=== PATIENT | female | born 1935 | race Caucasian/White ===

== ENCOUNTER 2016-08-18 12:25 | Inpatient (IN) ==
[2016-08-18 12:49] LABS: MANUAL DIFF NEEDED? NO
[2016-08-18 13:05] LABS: BASO% 0.2 % (0.0-0.8); EOS# 0.23 X1000 (0.0-0.7); EOS% 1.3 % (0.0-10.0); HEMATOCRIT 37.5 % (37.0-47.0); HEMOGLOBIN 12.4 g/dL (12.0-16.0); IMM GRAN% 0.6 % (0.0-0.5); LYMPH# 3.43 X1000 (1.2-3.4); MCH 29.9 PG (27-31); MCHC 33.1 g/dL (33-37); MCV 90.4 FL (81-99); NEUT% 68.9 % (42.2-75.2); PLT 215 X1000 (130-400); RBC 4.15 XMIL (4.2-5.4)
--- NOTE | 2016-08-18 13:13 | EKG Report ---
Test Performed on : 08/18/2016 12:48:28 PM Test Reason : CHEST PAIN Blood Pressure : / mmHG Vent. Rate : 083 BPM Atrial Rate : 083 BPM P-R Int : 162 ms QRS Dur : 068 ms QT Int : 348 ms P-R-T Axes : 054 006 016 degrees QTc Int : 408 ms Normal sinus rhythm. Normal ECG When compared with ECG of 13-AUG-2016 09:44, No significant change was found Unconfirmed Result
[2016-08-18 13:16] LABS: INR 0.95 (0.86-1.15)
[2016-08-18 13:17] LABS: PTT PL 32.2 Seconds (22.6-43.9)
[2016-08-18 13:22] LABS: ALBUMIN 3.7 g/dL (3.5-5.0); CALCIUM 9.1 mg/dL (8.8-10.2); MAGNESIUM 2.1 mg/dL (1.5-2.7); POTASSIUM 3.1 mmol/L (3.5-5.1); TOTAL BILIRUBIN 0.5 mg/dL (0.20-1.00); TOTAL PROTEIN 7.1 g/dL (6.3-8.3)
--- NOTE | 2016-08-18 13:35 | Diag Imaging Result Doc PS360 ---
EXAM: CHEST-2 VIEWS HISTORY: CP COMMENT: The inspiration is somewhat suboptimal. There is a hiatal hernia. There is a calcified granuloma in the right base. Compared to the previous examination of 05/21/2013 there has been no significant change in the appearance of the chest. IMPRESSION: Stable chest. Electronically signed by Boogie Núñez 08/18/2016 1:32 PM
[2016-08-18 13:46] LABS: CK INDEX 1.9 (0.0-2.5); CK-MB 3.69 ng/mL (0.0-5.0)
--- NOTE | 2016-08-18 14:04 | Diag Imaging Result Doc PS360 ---
EXAM: HEAD W/O CONTRAST HISTORY: falls, slurred speech COMMENT: There are no previous studies available for comparison. There is generalized cerebral atrophy. There are patchy ill-defined areas of lucency in the white matter of both hemispheres. This is particularly true on the left side on image 21. No evidence of bleed mass effect or abnormal extra-axial fluid collection is present. There are calcifications in both internal carotid arteries. The visualized paranasal sinuses are clear. The calvarium appears to be intact. 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 No evidence of acute intracranial disease. Electronically signed by Boogie Núñez 08/18/2016 2:02 PM
[2016-08-18 14:40] LABS: BE 7.8 mmoll (-3.0-3.0); BLOOD TYPE ARTERIAL; DRAW SITE R RADIAL; METHB 1.2 % (0.0-1.5); O2(CT) 16.2 mL/dL (15.0-23.0); PCO2(98.6) 46 mmHg (35-45); PO2(98.6) 68 mmHg (60-100); SAMPLE BLOOD; THB 12.3 g/dL (11.5-17.4); pH(98.6) 7.46 (7.35-7.45)
[2016-08-18 14:42] LABS: ALLEN TEST YES; MODALITY CANNULA
[2016-08-18 14:54] LABS: URINE CULTURE PL NEEDED? NO
[2016-08-18 15:05] LABS: UR AMPHETAMINES QUAL NONE DETECTED (NONE DETECT); UR BARBITUATES QUAL NONE DETECTED (NONE DETECT)
[2016-08-18 15:06] LABS: UR BENZODIAZEPIN QUAL PRESUMPTIVE POSITIVE (NONE DETECT); UR CANNABINOIDS QUAL NONE DETECTED (NONE DETECT); UR COCAINE QUAL NONE DETECTED (NONE DETECT); UR MDMA QUAL NONE DETECTED (NONE DETECT); UR METHADONE QUAL NONE DETECTED (NONE DETECT); UR METHAMPHETAMINE QUAL NONE DETECTED (NONE DETECT); UR OPIATES QUAL NONE DETECTED (NONE DETECT); UR OXYCODONE QUAL NONE DETECTED (NONE DETECT); UR PCP QUAL NONE DETECTED (NONE DETECT); UR TCA QUAL NONE DETECTED (NONE DETECT)
[2016-08-18 15:09] LABS: BILIRUBIN URINE NEGATIVE (NEGATIVE); BLOOD URINE TRACE (NEGATIVE); CLARITY CLEAR (CLEAR); COLOR YELLOW; GLUCOSE URINE NEGATIVE (NEGATIVE); LEUKOCYTES URINE 2+ (NEGATIVE); NITRITE URINE NEGATIVE (NEGATIVE); PROTEIN URINE TRACE mg/dL (NEGATIVE); URINE SOURCE CLEAN CATCH; UROBILINOGEN URINE NORMAL
[2016-08-18 15:10] LABS: URINE EPITHELIAL CELLS <10 /HPF (<10); URINE WBC <10 /HPF (<10)
--- NOTE | 2016-08-18 17:12 | PROVIDER DOCUMENTATION ---
This chart was entered by Christopher Montanez Scribe, acting as scribe for Tyson Esquivel MD. HPI-General Adult - General Chief Complaint: Fall Stated Complaint: fall Time Seen by Provider: 08/18/16 12:42 Source: patient, family Allergies/Adverse Reactions: Patient Allergies Allergy/AdvReac Type Severity Reaction Status Date / Time acetaminophen [From Lortab] Allergy Severe Unknown Verified 11/10/14 19:26 cyclobenzaprine HCl * Allergy Severe Unknown Verified 11/10/14 19:26 [From Flexeril] diphenhydramine HCl * Allergy Severe Unknown Verified 11/10/14 19:26 [From Benadryl] hydrocodone bitartrate * Allergy Severe Unknown Verified 11/10/14 19:26 [From Lortab] prednisone AdvReac DIZZINESS Verified 08/18/16 12:30 Home Medications: Home Medication List Medication Instructions Recorded Confirmed Last Taken Type Amlodipine [Norvasc] 10 mg PO DAILY 05/21/13 08/18/16 11/10/14 History Furosemide [Lasix] 80 mg PO DAILY 05/21/13 08/18/16 11/10/14 History Gabapentin [Neurontin] 800 mg PO 4XDAY 05/21/13 08/18/16 11/10/14 History Nebivolol [Bystolic] 5 mg PO DAILY 05/21/13 08/18/16 11/10/14 History Alprazolam [Xanax] 0.5 mg PO TID 11/10/14 08/13/16 11/10/14 History Clonidine [Catapres] 0.1 mg PO PRN PRN 08/13/16 08/18/16 Unknown History Levothyroxine [Synthroid] 100 microgm PO DAILY 08/13/16 08/18/16 Unknown History Meclizine [Antivert] 25 mg PO PRN PRN 08/13/16 08/18/16 Unknown History Tramadol [Ultram] 50 mg PO Q6H PRN PRN 08/13/16 08/18/16 Unknown History Prednisone 10 mg PO DAILY 08/18/16 08/18/16 Unknown History - History of Present Illness -Gen Adult Nature of Presenting Problems: patient is a 80 y/o F that presents to the ER with falling multiple times past few weeks as well as slurred speech and dizziness. Son reports patient was placed on Prednisone which she is allergic to. her pcp put her on it for knee pain, in which she was suppose to have surgery on it next week but it was delayed due to elevated WBC. Location of Pain/Injury: reports: lower extremity (right knee) Pain Radiation: reports: no radiation Quality of Pain: reports: dull Severity: reports: mild, moderate Onset/Duration: reports: other (chronic) Timing: reports: still present, constant Context/Activities at Onset: reports: recent trauma history Modifying Factors: improves with: nothing Associated Symptoms: reports: dizziness, weakness, other (slurred speech). denies: nausea, rash Similar Symptoms Previously?: No Recently seen or treated by another doctor?: Yes Review of Systems - Adult - REVIEW OF SYSTEMS - ADULT Constitutional: denies: chills, fever Eyes: denies: decreased vision, blurred vision, double vision Ears, Nose, Mouth & Throat: denies: ear discharge, ear pain, sinus problem, throat pain, throat swelling Cardiovascular: denies: chest pain, palpitations, syncope Respiratory: denies: cough, shortness of breath, wheezing Gastrointestinal: denies: abdominal pain, diarrhea, nausea, vomiting Genitourinary: reports: no symptoms reported Musculoskeletal: reports: joint pain, muscle weakness. denies: back pain, neck pain Integumentary: reports: no symptoms reported Neurological: reports: dizziness/vertigo. denies: seizure, syncope Psychiatric: reports: no symptoms reported Endocrine: reports: no symptoms reported Hematologic/Lymphatic: reports: no symptoms reported Allergic/Immunologic: reports: no symptoms reported All Other Systems: Reviewed and Negative Past History - Adult - PAST MEDICAL HISTORY-ADULT Review of Records: reports: Old Records Reviewed, Nursing Assessment Review, Medications Reviewed Cardiovascular: reports: HTN, hyperlipidemia Neurological: reports: other (neuropathy) - PRIOR SURGERIES/PROCEDURES Surgical/Procedure History: reports: hysterectomy, other (cataract) - PRIOR HOSPITALIZATIONS Prior Hospitalizations: reports: none - IMMUNIZATION STATUS Childhood Immunizations: See Nurse Assessment Flu Vaccine: See Nurse Assessment - FAMILY HISTORY Family History: reviewed, not pertinent - SOCIAL HISTORY Smoking: non-smoker Living Situation: family Physical Exam-General - PHYSICAL EXAM-ADULT Initial Vital Signs Reviewed: Yes - CONSTITUTIONAL General Appearance: no apparent distress, slow to respond - EYES Eyes: PERRL/EOMI, pink conjunctivae - HEAD, EARS, NOSE, MOUTH & THROAT HENMT: normocephalic/atraumatic, moist mucous membranes, normal ENT inspection - NECK Neck: full range of motion, normal inspection - RESPIRATORY Respiratory: lungs clear, normal breath sounds, no respiratory distress, no accessory muscle use - CARDIOVASCULAR Cardiovascular: regular rate, rhythm, no edema, no murmur - GASTROINTESTINAL (ABDOMEN) Abdominal Exam: normal bowel sounds, non tender, soft, no organomegaly, no pulsatile mass - MUSCULOSKELETAL Extremity: no pedal edema, normal capillary refill, pelvis stable - SKIN Integumentary: normal color, warm/dry - NEUROLOGIC Neurologic: other (slurred speech). negative: aphasia, facial droop, focal weakness, motor weakness, sensory deficit - PSYCHIATRIC Psych/Mental Status: oriented x 3, other (slow to respond) Progress - PLAN OF CARE/RESULTS Progress/Plan/Lab Results: Vital Signs - 8 hr 08/18/16 12:27 Pulse Rate 80 Respiratory Rate 18 Blood Pressure 130/61 O2 Sat by Pulse Oximetry 94 L Laboratory Results - last 24 hr 08/18/16 12:30 WBC 18.04 H RBC 4.15 L Hgb 12.4 Hct 37.5 MCV 90.4 MCH 29.9 MCHC 33.1 RDW Std Deviation 14.1 Plt Count 215 MPV 11.0 H Immature Gran % (Auto) 0.6 H Neut % (Auto) 68.9 Lymph % (Auto) 19.0 L [place] % (Auto) 10.0 H Eos % (Auto) 1.3 Baso % (Auto) 0.2 Immature Gran # (Auto) 0.10 H Neut # (Auto) 12.44 H Lymph # (Auto) 3.43 H [place] # (Auto) 1.80 H Eos # (Auto) 0.23 Baso # (Auto) 0.04 Orders Category Date Time Status Cardiac Monitoring DIRECTED Care 08/18/16 12:33 Active Oxygen Therapy- ED Nursing DIRECTED Care 08/18/16 12:33 Active Saline Loc NOW Care 08/18/16 12:33 Active CHEST-2 VIEWS [RAD] Stat Exams 08/18/16 12:33 Ordered CBC WITH ELECTRONIC DIFF [HEME] Stat Lab 08/18/16 12:30 Completed CK PROFILE [SP CHEM] Stat Lab 08/18/16 12:30 Received COMPREHENSIVE METABOLIC PANEL [CHEM] Stat Lab 08/18/16 12:30 Received D-DIMER PL [COAG] Stat Lab 08/18/16 12:30 Received MAGNESIUM [CHEM] Stat Lab 08/18/16 12:30 Received PRO B-NATRIURETIC PEPTIDE Stat Lab 08/18/16 12:30 Received [address]IME WITH INR PL [COAG] Stat Lab 08/18/16 12:[address] [COAG] Stat Lab 08/18/16 12:30 Received TROPONIN T Stat Lab 08/18/16 12:30 Received EKG [EKG] Stat Ther 08/18/16 12:33 Ordered Result Diagrams: 08/18/16 12:30 08/18/16 12:30 - REASSESSMENT Reassessment #1 Time Reassessed: 15:45 (Son is concerned about the number of meds she takes. Speech is still sl slurred. WBC is down from 24 last week) Status: unchanged - EKG 1 Time of EKG reading by physician:: 12:49 EKG Read and Signed by:: Tyson Esquivel EKG Interpretation (*Must complete 3 of following elements*): Normal Rate: 83 Rhythm: NSR [place]: normal QRS: normal OR Interval: normal ST Wave: normal - XRAY 1 XRAY Study: Chest Impression: Abnormal XRAY Interpretation: hital hernia, calcified granuloma in R base - CT/MRI 1 CT Study: Head Impression: Abnormal CT Results: chronic ischemic microvas dz and cerebral atrophy - CONSULTS/PCP/HOSPITALIST Notification #1 *Consult/PCP/Hospitalist*: [place] Time Discussed: 16:01 Consult Disposition: Admit Departure - Departure Time of Disposition Decision: 16:02 DIAGNOSIS: Altered mental status Qualifiers: Altered mental status type: unspecified Qualified Code(s): R41.82 - Altered mental status, unspecified Falls Qualifiers: Encounter type: initial encounter Qualified Code(s): W19.XXXA - Unspecified fall, initial encounter Disposition: ADMITTED INPATIENT 09 Certified Medical Emergency: Emergent Condition: Stable Referrals and Follow-Ups: Shakir Rocha MD [Primary Care Provider] - - Critical Care Note This patient required my direct & personal management of CC.: No This chart was documented by the indicated scribe, (Christopher Montanez, Scribe) and accurately reflects the services I performed and decisions made by Alvin garcia Alex T., MD, as attested by the provider's signature.
[2016-08-18] MEDS ORDERED: ZOFRAN PO PRN (17:15)
[2016-08-18] MEDS ORDERED: NS 1,000 ML IV ONE (17:15)
[2016-08-18] MEDS ORDERED: TYLENOL PO PRN (17:15)
[2016-08-18] MEDS ORDERED: ULTRAM PO PRN (19:55)
[2016-08-18] MEDS: XANAX PO PRN (21:33)
[2016-08-19] MEDS: SYNTHROID PO SCH (06:06)
[2016-08-19 06:42] LABS: AGAP 9; ALBUMIN 3.2 g/dL (3.5-5.0); ALKALINE PHOSPHATASE 95 U/L (32-104); BUN 12 mg/dL (8-22); CALCIUM 8.4 mg/dL (8.8-10.2); CHLORIDE 101 mmol/L (98-107); COSMO 278; GOT 14 U/L (10-30); GPT 12 U/L (10-36); POTASSIUM 3.5 mmol/L (3.5-5.1); SODIUM 137 mmol/L (136-145); TCO2 27 mmol/L (25-35); TOTAL PROTEIN 6.1 g/dL (6.3-8.3)
[2016-08-19 06:57] LABS: HEMATOCRIT 33.9 % (37.0-47.0); HEMOGLOBIN 11.3 g/dL (12.0-16.0); MCH 30.2 PG (27-31); MCHC 33.3 g/dL (33-37); MCV 90.6 FL (81-99); MPV 10.9 FL (7.4-10.4); RBC 3.74 XMIL (4.2-5.4)
[2016-08-19] MEDS ORDERED: ZOFRAN IV PRN (07:34)
[2016-08-19] MEDS ORDERED: TYLENOL PO PRN (07:34)
--- NOTE | 2016-08-19 07:52 | PROGRESS NOTE ---
DATE: 08/19/2016 SUBJECTIVE: The patient notes that she is feeling a little bit better. She is still dizzy and lightheaded. Has not fallen but she has also not been out of bed. She is asking to restart her Neurontin because she notes that her feet feel like they are going to explode. PHYSICAL EXAMINATION: Vital Signs: Temperature 97, pulse 80, respiratory rate 18, BP 117/47, and saturation is 96% on 2 L. General: The patient is awake, alert, oriented. She is currently in no respiratory distress. Speech appears regular. Memory appears intact. Neck: Supple. CV: Regular rate. Chest: Clear. Abdomen: Soft. Extremities: Moves all extremities. Neurologic: No focal changes. DIAGNOSTIC DATA: WBCs 14. Potassium 3.5, creatinine 0.7, glucose 184. Alkaline phosphatase 91. ASSESSMENT: 1. Mild protein calorie malnutrition. 2. Probable urinary tract infection. 3. Frequent falls. 4. Hypokalemia. 5. Leukocytosis, improving. Uncertain if leukocytosis is secondary to her recent steroids or to her urinary tract infection. We will follow. 6. Elevated D-dimer. The patient has no signs nor symptoms of shortness of breath or chest pain. We will check an ultrasound of her lower extremities, although likely this is secondary to chronic vascular disease. 7. Frequent falls secondary to adult failure to thrive and right knee arthritis for which she is scheduled for surgery. PLAN: We will continue her on antibiotics. We will continue her blood pressure medications of losartan and Bystolic. We will saline lock. We will restart her Neurontin but at a lower dose as she has been falling and uncertain of the cause, whether it is just simple pain or if she is truly getting disoriented from medications. cc: Marin Galeana MD
[2016-08-19] MEDS: XANAX PO PRN ×3 (08:31→22:27)
[2016-08-19] MEDS: BYSTOLIC PO SCH (08:31)
[2016-08-19] MEDS: ROCEPHIN 1 GM/NS 1 GM/50 ML IVPB IV SCH (08:32)
[2016-08-19] MEDS: NEURONTIN PO SCH ×3 (08:32→17:08)
[2016-08-19] MEDS: LASIX PO SCH (08:32)
[2016-08-19] MEDS: COZAAR PO SCH (08:32)
[2016-08-19] MEDS: ASPIRIN EC PO SCH (08:33)
--- NOTE | 2016-08-19 10:19 | HISTORY AND PHYSICAL ---
CHIEF COMPLAINT: Fall. HISTORY OF PRESENT ILLNESS: This is an 80-year-old female who presented to the emergency room reporting multiple falls over the past few weeks. The son states that she has had slurred speech and dizziness over the last week or so, although she has chronic dizziness for which she takes meclizine. Slurred speech being new. She was started on steroids on August 04. by her PCP . Symptoms appeared after this medication was introduced. The son states that she does have a history of dizziness while taking prednisone. On arrival to the emergency room, she was noted to have slurred speech with no other neurologic deficits. This did resolve over time. A CT of the head revealed chronic ischemic microvascular disease and cerebral atrophy. No evidence of acute intracranial disease. White count was noted to be 18 with a D-dimer of 1.79. She is being admitted for further evaluation and treatment. PAST MEDICAL HISTORY: Prior CVA, hypertension, hypothyroid, chronic knee pain. SURGICAL HISTORY: Cataract removal, hysterectomy, and brow lift. SOCIAL HISTORY: Denies alcohol, tobacco, or illicit drug use. ALLERGIES: Tylenol, Flexeril, Benadryl, Lortab with unknown reactions, and prednisone which makes her dizzy. REVIEW OF SYSTEMS: A 14 point review of systems is discussed with the patient with pertinent positives stated in the HPI. She denied any chest pain, palpitations, cough, fever, chills, shortness of breath, PND, orthopnea, nausea, vomiting, diarrhea, constipation, black or bloody vomitus, black or bloody stools, hematuria, dysuria, frequency, urgency. DIAGNOSTICS: WBC is 18.04, with a hemoglobin of 12.4, hematocrit 37.5, and platelets of 215,000. D-dimer is 1.79. Sodium is 136, potassium 3.1, BUN 17, creatinine 1, with a glucose of 186. Urinalysis was essentially negative. Urine drug screen was positive for benzodiazepines. ASSESSMENT AND PLAN: 1. Frequent falls. 2. Hypokalemia. 3. Leukocytosis. It is uncertain if this is secondary to recent steroids or urinary tract infection but we will follow. 4. Elevated D-dimer. She has no symptoms of shortness of breath or chest pain. We will check a lower extremity Doppler. Further testing based on results. 5. Probable urinary tract infection. The patient was started on nitrofurantoin prior to admission by her primary care physician. Urine culture is pending. We will continue Rocephin in the meantime. 6. Frequent falls secondary to adult failure to thrive and right knee arthritis for which she was scheduled for surgery today. PLAN: We will continue her medications. We will restart her Neurontin at a lower dose as we are uncertain if her falls and her slurred speech were secondary to medication. She has recently been on steroids daily. The son states that she has difficulty taking prednisone, it making her dizzy and difficulty maintaining her balance. We will hold steroids. Further treatments pending hospital course. Dictated by YOSEF Cagle for Marin Galeana MD cc: YOSEF Cagle MD MTDD
--- NOTE | 2016-08-19 14:01 | Extremity Venous Study ---
EXAM: Venous U/S Bilateral Legs INDICATION: d dimer COMPARISON: None. FINDINGS: There are no discrete filling defects seen in the deep venous systems of both lower extremities on grayscale imaging. There is normal Doppler flow, compressibility, and augmentation involving the common femoral veins, superficial femoral veins, popliteal veins, posterior tibial veins, and peroneal veins bilaterally. The great saphenous veins appear to be patent bilaterally. There is an incidental right popliteal cyst measuring up to 3.8 cm. Surrounding soft tissues are essentially unremarkable, otherwise. IMPRESSION: 1.No evidence of deep venous thrombosis. 2.Incidental right popliteal cyst. Electronically signed by Sridhar Cerna 08/19/2016 1:58 PM
[2016-08-19] MEDS ORDERED: ZOFRAN ODT PO PRN (15:13)
[2016-08-20 06:44] LABS: HEMATOCRIT 33.2 % (37.0-47.0); HEMOGLOBIN 10.9 g/dL (12.0-16.0); MCH 29.7 PG (27-31); MCHC 32.8 g/dL (33-37); MCV 90.5 FL (81-99); RBC 3.67 XMIL (4.2-5.4)
[2016-08-20 06:50] LABS: AGAP 14; BUN 10 mg/dL (8-22); CALCIUM 8.3 mg/dL (8.8-10.2); CHLORIDE 102 mmol/L (98-107); COSMO 285; POTASSIUM 3.6 mmol/L (3.5-5.1); SODIUM 140 mmol/L (136-145); TCO2 25 mmol/L (25-35)
[2016-08-20] MEDS: SYNTHROID PO SCH (06:50)
--- NOTE | 2016-08-20 08:18 | PROGRESS NOTE ---
DATE: 08/20/2016 SUBJECTIVE: The patient notes that she is feeling better. She would like to start trying to get up some. She denies any headaches or blurred vision. Denies any dizziness while she is lying in the bed. PHYSICAL EXAMINATION: Vital Signs: Temperature 98, pulse 81, respiratory rate 20, BP 139/53, and saturating 96% on room air. General: Patient is awake, alert, oriented. She is currently in no respiratory distress. She states she is feeling better. HEENT: Normocephalic. Neck: Supple. CV: Regular rate. Chest: Clear. Abdomen: Soft, nontender. Extremities: Moves all extremities. Neurologic: No changes. DIAGNOSTIC DATA: CBC at 14 with a hemoglobin and hematocrit of 10 and 33. CMP normal. ASSESSMENT: 1. Urinary tract infection. Urine culture is still growing, has not resulted out yet. We will continue antibiotics. 2. Frequent falls. 3. Hypokalemia. 4. Leukocytosis, stable. PLAN: I certainly do not feel as though her recent falls and confusion were secondary to medications. It appears that it is much more likely to be secondary to her urinary tract infection. She has right knee issues and had previously been scheduled for replacement, although this needs to wait until her infection is improved. cc: Marin Galeana MD
[2016-08-20] MEDS: ASPIRIN EC PO SCH (08:52)
[2016-08-20] MEDS: XANAX PO PRN ×3 (08:52→20:33)
[2016-08-20] MEDS: COZAAR PO SCH (08:52)
[2016-08-20] MEDS: LASIX PO SCH (08:52)
[2016-08-20] MEDS: BYSTOLIC PO SCH (08:52)
[2016-08-20] MEDS: ROCEPHIN 1 GM/NS 1 GM/50 ML IVPB IV SCH (08:52)
[2016-08-20] MEDS: NEURONTIN PO SCH ×3 (08:52→17:05)
[2016-08-21] MEDS: SYNTHROID PO SCH (06:37)
[2016-08-21] MEDS: ROCEPHIN 1 GM/NS 1 GM/50 ML IVPB IV SCH (07:06)
[2016-08-21 08:18] VITALS: BP 133/53
--- NOTE | 2016-08-21 08:23 | PROGRESS NOTE ---
DATE: 08/21/2016 SUBJECTIVE: Patient notes that she is feeling better. States she is able to ambulate a little bit better. Denies any syncope. PHYSICAL EXAMINATION: Vital Signs: Temperature 98, pulse 79, respiratory rate 21, BP 128/55, saturating 92% to 95% on room air. General: Patient awake alert, oriented. She is in no distress. Speech is regular. Neck: Supple. CV: Regular rate. Chest: Clear. Abdomen: Soft. Extremities: Moves all extremities. LABS: Urinalysis growing E. coli. ASSESSMENT: 1. Escherichia coli, pansensitive. We will switch to Levaquin p.o. 2. Adult failure to thrive. 3. Chronic right lower extremity arthritis. 4. Leukocytosis resolved. 5. Hypokalemia, resolved. 6. Elevated D-dimer likely secondary to her pain in the right lower extremity and her knee arthritis. PLAN: Hopefully patient can be discharged home later on this afternoon. She is currently on her home medications and is doing well. If she can ambulate we will discharge her home to follow up outpatient with ortho. cc: Marin Galeana MD
[2016-08-21] MEDS: ASPIRIN EC PO SCH (08:58)
[2016-08-21] MEDS: COZAAR PO SCH (08:58)
[2016-08-21] MEDS: NEURONTIN PO SCH ×2 (08:58→12:36)
[2016-08-21] MEDS: LASIX PO SCH (08:59)
[2016-08-21] MEDS: BYSTOLIC PO SCH (08:59)
[2016-08-21] MEDS ORDERED: LEVAQUIN PO SCH (09:00)
[2016-08-21] MEDS: XANAX PO PRN (09:41)
--- NOTE | 2016-08-22 12:35 | DISCHARGE SUMMARY ---
ADMISSION DATE: 08/18/2016 DISCHARGE DATE: 08/21/2016 DIAGNOSES: 1. Frequent falls. 2. Escherichia coli urinary tract infection, pansensitive. 3. Leukocytosis, resolved. 4. Adult failure to thrive. 5. Chronic right lower extremity arthritis. 6. Hypokalemia, resolved. DIAGNOSTICS: On 08/18/2016 chest x-ray, hiatal hernia, a calcified granuloma in the right base with somewhat suboptimal inspiration. On 08/18/[address], chronic ischemic microvascular disease and cerebral atrophy. No evidence of acute disease. On 08/19/2016 extremity venous Doppler, bilateral, with no evidence of deep vein thrombosis. HOSPITAL COURSE: Ms. Nunez was admitted to the hospital after having frequent falls over the 3 weeks prior to admission. Over the 24 hours prior to coming in, she had more falls, and she developed slurred speech and dizziness. She does have a history of chronic dizziness, for which she takes meclizine. CT of the head revealed no acute processes. She was found have a white count of 18 and ultimately she had an Escherichia coli urinary tract infection, for which she received IV antibiotics and transitioned to Levaquin p.o. Her slurred speech has resolved. She is back to her normal. She does have chronic right lower extremity arthritis and, in fact, she was to have a right knee replacement on the day of admission, but this had been canceled due to an elevated white blood cell count that was felt to be secondary to steroid use. Physical Therapy did evaluate the patient. She ambulated actually 110 feet earlier this morning. She stated that the pain was her usual pain. She has had no syncopal episodes or dizziness since admission. DISCHARGE PHYSICAL EXAMINATION: Cardiovascular: Regular rate and rhythm. S1 and S2 are appreciated. Pulmonary: Breath sounds are clear, with no increased work of breathing noted. Gastrointestinal: Abdomen is soft, nontender, and nondistended, with bowel sounds in all 4 quadrants. Extremities: No clubbing, cyanosis, or edema. Calves are nontender. Pulses are palpable x4. Neurologic: She is alert and oriented x3, with cranial nerves 2-12 grossly intact. DISCHARGE MEDICATIONS: Xanax 0.5 p.o. t.i.d. p.r.n., enteric-coated aspirin 81 mg daily (which she is holding due to upcoming knee replacement), Lasix 80 mg daily, Neurontin 400 mg t.i.d., Levaquin 500 mg daily, Synthroid 100 mcg daily, Cozaar 100 mg daily, Bystolic 5 mg daily, Zofran ODT p.r.n., and Ultram 50 mg q.6 hours p.r.n. DISCHARGE ACTIVITY: As tolerated. FOLLOWUP: 1. She is to follow up her primary care physician in the next 1-[address] Dupont in Orthopedics as scheduled. 3. She will have home health and home PT. DISPOSITION: She is being discharged home in stable condition with family members. TIME SPENT: This is a greater than 30-minute discharge. Dictated by YOSEF Cagle for Marin Galeana MD cc: YOSEF Cagle MD
== END 2016-08-21 14:52 | disposition home or self-care (01) ==
LOC: P.ED 12:25 → P.MEDSURG 17:23
PROVIDERS: ATTEND Family Medicine

== ENCOUNTER 2016-10-21 06:44 | Inpatient (IN) ==
[2016-10-13 09:44] LABS: MANUAL DIFF NEEDED? NO; URINE MICRO REVIEW NEEDED? NO; URINE SOURCE CLEAN CATCH
[2016-10-13 09:54] LABS: BASO% 0.7 % (0.0-0.8); EOS# 0.51 X1000 (0.0-0.7); EOS% 3.9 % (0.0-10.0); HEMATOCRIT 43.4 % (37.0-47.0); HEMOGLOBIN 14.3 g/dL (12.0-16.0); IMM GRAN# 0.02 X1000 (0.0-0.04); IMM GRAN% 0.2 % (0.0-0.5); LYMPH# 4.13 X1000 (1.2-3.4); LYMPH% 31.9 % (20.5-51.1); MCH 27.3 PG (27-31); MCHC 32.9 g/dL (33-37); MCV 82.8 FL (81-99); MONO# 0.91 X1000 (0.11-0.59); MPV 11.2 FL (7.4-10.4); NEUT% 56.3 % (42.2-75.2); PLT 289 X1000 (130-400); RBC 5.24 XMIL (4.2-5.4)
[2016-10-13 10:02] LABS: BILIRUBIN URINE NEGATIVE (NEGATIVE); BLOOD URINE NEGATIVE (NEGATIVE); COLOR STRAW; GLUCOSE URINE NEGATIVE (NEGATIVE); LEUKOCYTES URINE NEGATIVE (NEGATIVE); NITRITE URINE NEGATIVE (NEGATIVE); PH URINE 7.5; PROTEIN URINE NEGATIVE (NEGATIVE); SP GRAVITY URINE 1.002; TURBIDITY URINE CLEAR (CLEAR); UROBILINOGEN URINE NORMAL (NORMAL)
[2016-10-13 10:05] LABS: INR 0.97; PROTIME 10.2 Seconds (9.2-11.7); PTT 28.1 Seconds (22.0-36.0)
[2016-10-13 10:07] LABS: UR EPITHELIAL CELLS <10 /HPF (<10); URINE BACTERIA NEGATIVE /HPF; URINE RBC <10 /HPF (<10); URINE WBC <10 /HPF (<10)
[2016-10-13 10:24] LABS: CALCIUM 10.3 mg/dL (8.8-10.2); POTASSIUM 4.1 mmol/L (3.5-5.1)
[2016-10-21] MEDS ORDERED: COLACE ONE (07:40)
[2016-10-21] MEDS ORDERED: PEPCID ONE (07:40)
[2016-10-21] MEDS ORDERED: REGLAN ONE (07:40)
[2016-10-21] MEDS ORDERED: LR 1,000 ML ONE (07:41)
[2016-10-21] MEDS ORDERED: CELEBREX ONE (07:41)
[2016-10-21] MEDS ORDERED: KEFZOL 1 GM/D5W 1 GM/50 ML IVPB ONE (07:41)
[2016-10-21] MEDS ORDERED: LYRICA ONE (07:41)
[2016-10-21] MEDS ORDERED: BYSTOLIC PO ONE (08:15)
[2016-10-21] MEDS ORDERED: DIPRIVAN 1% 500 MG/50 ML BOTTLE ONE (09:36)
[2016-10-21] MEDS ORDERED: FENTANYL ONE (09:39)
[2016-10-21] MEDS ORDERED: VERSED ONE (09:42)
[2016-10-21] MEDS ORDERED: DURAMORPH ONE (10:05)
[2016-10-21] MEDS ORDERED: TORADOL ONE (10:05)
[2016-10-21] MEDS ORDERED: SENSORCAINE 0.25%/EPI 1:200,000 ONE (10:06)
[2016-10-21] MEDS ORDERED: SODIUM CHLORIDE 0.9% ONE (10:06)
[2016-10-21] MEDS ORDERED: EXPAREL 1.3% ONE (10:06)
[2016-10-21] MEDS ORDERED: CYKLOKAPRON 1,000 MG/NS 1,000 MG/100 ML IVPB ONE ×2 (10:06→10:07)
[2016-10-21] MEDS ORDERED: NEOSPORIN G.U. IRRIGANT ONE (10:06)
[2016-10-21] MEDS ORDERED: VANCOMYCIN ONE (10:06)
[2016-10-21] MEDS ORDERED: OFIRMEV 1000 MG/ISOTONIC SOLN 1,000 MG/100 ML BOTTLE ONE (10:39)
[2016-10-21] MEDS ORDERED: ZOFRAN ONE (10:39)
[2016-10-21] MEDS ORDERED: DECADRON ONE (10:39)
[2016-10-21 11:08] LABS: URINE MICRO REVIEW NEEDED? NO; URINE SOURCE CATH
[2016-10-21 11:12] LABS: UR EPITHELIAL CELLS <10 /HPF (<10); URINE BACTERIA NEGATIVE /HPF; URINE RBC <10 /HPF (<10); URINE WBC <10 /HPF (<10)
[2016-10-21 11:13] LABS: BILIRUBIN URINE NEGATIVE (NEGATIVE); BLOOD URINE NEGATIVE (NEGATIVE); COLOR YELLOW; GLUCOSE URINE NEGATIVE (NEGATIVE); LEUKOCYTES URINE NEGATIVE (NEGATIVE); NITRITE URINE NEGATIVE (NEGATIVE); PROTEIN URINE NEGATIVE (NEGATIVE); SP GRAVITY URINE 1.016; TURBIDITY URINE CLEAR (CLEAR); UROBILINOGEN URINE NORMAL (NORMAL)
[2016-10-21] MEDS ORDERED: NS 1,000 ML ONE (12:35)
--- NOTE | 2016-10-21 13:09 | Diag Imaging Result Doc PS360 ---
EXAM: KNEE 1-2 VIEWS-LEFT HISTORY: L TKA TECHNIQUE: Two views Findings: 07/11/2016 there is been recent orthopedic surgery to the left knee. There are anterior skin jonh and there is asymmetry. Surgical drain. No fracture. No dislocation. Impression: Good alignment to the femoral and tibial components following orthopedic placement of the left knee. Electronically signed by Soren Urena 10/21/2016 1:07 PM
[2016-10-21] MEDS: BYSTOLIC PO SCH (14:09)
[2016-10-21] MEDS: COZAAR PO SCH (14:09)
[2016-10-21] MEDS: NEURONTIN PO SCH ×4 (14:12→21:43)
[2016-10-21] MEDS: NORVASC PO SCH (14:12)
[2016-10-21] MEDS: XANAX PO SCH ×2 (14:12→21:42)
[2016-10-21] MEDS: LASIX PO SCH (14:13)
[2016-10-21] MEDS: ANTIVERT PO SCH ×3 (14:13→17:27)
[2016-10-21] MEDS: APRESOLINE PO SCH ×4 (14:13→21:42)
[2016-10-21] MEDS: NS 1,000 ML IV SCH ×2 (14:19→21:43)
[2016-10-21] MEDS ORDERED: ZOFRAN PO PRN (14:30)
[2016-10-21] MEDS ORDERED: MILK OF MAGNESIA PO PRN (14:30)
[2016-10-21] MEDS: TYLENOL PO SCH ×2 (15:49→21:43)
[2016-10-21] MEDS: OXY IR PO PRN ×2 (15:50→21:42)
[2016-10-21] MEDS: KEFZOL 2 GM/D5W 2 GM/50 ML IVPB IV SCH (17:28)
[2016-10-21] MEDS: PERIDEX MT SCH (21:41)
[2016-10-21] MEDS: COLACE PO SCH (21:42)
[2016-10-22] MEDS: APRESOLINE PO SCH ×5 (00:14→20:20)
--- NOTE | 2016-10-22 01:06 | OPERATIVE NOTE ---
PROCEDURE DATE: 10/21/2016 PREOPERATIVE DIAGNOSIS: Degenerative osteoarthritis of the left knee. POSTOPERATIVE DIAGNOSIS: Degenerative osteoarthritis of the left knee. PROCEDURE PERFORMED: Left total knee arthroplasty with DePuy Attune size 5 posterior stabilized femur, size 5 tibial tray, 6 mm rotating platform tibial insert, and a 32 mm medialized anatomic patella. SURGEON: Dr. Dupont. HOME CARE AIDE: RUSTAM Alejo. SECOND INTERNAL MEDICINE SPECIALIST: Charli Dawn RN. ANESTHESIA: Spinal. INTRAVENOUS FLUIDS: 1800 mL lactated Ringer's. ESTIMATED BLOOD LOSS: 20 mL. TOURNIQUET TIME: 80 minutes at 350 mmHg. COMPLICATIONS: None. INDICATION: The patient is an 80-year-old female with chronic history of worsening pain and discomfort over the left knee. Continued pain and discomfort despite appropriate nonoperative treatment. X-rays revealed significant degenerative arthritis. A recommendation to proceed with left total knee arthroplasty was offered. Risks and benefits of surgery were explained, including the risks of anesthesia, , bleeding, infection, failure to relieve pain, postoperative stiffness, nerve injury, blood clots, and other imponderables. All questions were answered. The patient and family wished to proceed with surgery. DETAILS OF OPERATION: The patient was taken to the operating room and underwent spinal anesthesia. After adequate anesthesia was obtained, patient was placed supine on the operating table. The left lower extremity was subsequently prepped and draped in the usual sterile fashion. An Esmarch was used to exsanguinate the left lower extremity. The tourniquet was inflated to 350 mmHg. A standard anterior incision was made with a skin knife. Medial and lateral skin envelopes were developed. A standard medial parapatellar arthrotomy was then performed. Patella fat pad was excised. Retractors then placed. Approximately 1 cm anterior to the PCL insertion, starting reamer was passed. Intramedullary guide with a distal femoral cutting block was pinned in position. Distal femoral cut was then performed in standard fashion. A sizing block was placed and measured size 5. Corresponding pins were placed. Anterior, posterior, and chamfer cuts were then made. Attention then turned to the proximal tibia. Further resection of the ACL and PCL was performed. Using the extramedullary guide, the proximal tibial cutting block was pinned in position. It had good alignment, confirmed with the alignment aarti. The proximal tibia was then resected in standard fashion. A curved osteotome was used to remove the posterior osteophytes off the distal femur. A spacer block was placed, and this soft tissue balanced in both flexion and extension. Attention then turned to the proximal tibia once again. The size 5 tibial tray appeared to be correct size. Corresponding pins were placed. This was followed by a central reamer and a fin punch. A box cutting guide was then placed on the distal femur. A box cut was then performed. A trial femoral component was then placed. The 2 lug holes were drilled. A trial tibial insert was placed and had good soft tissue balancing. Attention turned to the patella. It was everted, resected in standard fashion. A size 32 appeared to be correct size. Corresponding holes were drilled. A 32 mm medialized anatomic patella was then placed and had some evidence of some lateral tilt in translation. Therefore, a lateral release was subsequently performed. All components were then removed. Copious irrigation then performed with antibiotic pulsatile lavage with vancomycin mixed with cement on back table. Sequential cementing was then performed, first with the tibial tray, and excess cement removed with a Shirland, followed by the femoral component. Excess cement was removed with a Shirland. A trial tibial insert was then placed and axial loading was maintained while cement cured. Patella cemented in standard fashion. Patella clamp was placed. While the cement was curing, Exparel was placed in deep soft tissue, as well as subcutaneous tissue. After the cement had cured, the peripheral cement was removed with the small osteotome. The 6 mm tibial insert appeared to be correct size. The trial insert was removed. Exparel was then placed in the posterior capsule. The wound was copiously irrigated with antibiotic pulsatile lavage. A 6 mm rotating platform tibial insert was then placed. These were then carried through range of motion, had good range of motion, good soft tissue balance, and good patellofemoral tracking. A Hemovac drain was placed and was not sewn in. Copious irrigation then performed once again with antibiotic pulsatile lavage. Number 1 Vicryl was used. Arthrotomy, followed by 2-0 Vicryl for subcutaneous tissue and skin jonh. Adaptic, sterile 4 x 4s, Webril, cryo unit, Kingsley wrap applied to the right lower extremity. Patient tolerated the procedure well with no complications. Transferred to the recovery room in stable condition. cc: Foreign Dupont MD
[2016-10-22] MEDS: TYLENOL PO SCH ×4 (01:58→20:20)
[2016-10-22] MEDS: KEFZOL 2 GM/D5W 2 GM/50 ML IVPB IV SCH (02:00)
[2016-10-22] MEDS: NS 1,000 ML IV SCH ×2 (02:33→16:48)
[2016-10-22 05:41] LABS: HEMATOCRIT 36.5 % (37.0-47.0); HEMOGLOBIN 11.8 g/dL (12.0-16.0)
[2016-10-22 06:05] LABS: CALCIUM 8.9 mg/dL (8.8-10.2); POTASSIUM 5.2 mmol/L (3.5-5.1)
[2016-10-22] MEDS: SYNTHROID PO SCH (06:53)
[2016-10-22] MEDS: XARELTO PO SCH (06:53)
[2016-10-22] MEDS: COZAAR PO SCH (08:07)
[2016-10-22] MEDS: XANAX PO SCH ×2 (08:07→20:26)
[2016-10-22] MEDS: PEPCID PO SCH (08:07)
[2016-10-22] MEDS: NEURONTIN PO SCH ×4 (08:07→20:20)
[2016-10-22] MEDS: BYSTOLIC PO SCH (08:07)
[2016-10-22] MEDS: LASIX PO SCH (08:07)
[2016-10-22] MEDS: NORVASC PO SCH (08:08)
[2016-10-22] MEDS: ANTIVERT PO SCH ×3 (08:08→20:20)
[2016-10-22] MEDS: COLACE PO SCH ×2 (08:08→20:20)
[2016-10-22] MEDS: PERIDEX MT SCH ×2 (08:09→20:22)
--- NOTE | 2016-10-22 11:05 | PROGRESS NOTE ---
DATE: 10/22/2016 SUBJECTIVE: Patient is a pleasant, 80-year-old female who is 1 day status post left total knee arthroplasty. She is currently resting comfortably this morning. OBJECTIVE: Physical examination: On physical exam, the patient's dressing is intact. Her calf is soft. She has active dorsiflexion and plantarflexion. Laboratory Data: Her hemoglobin is 11.8, hematocrit is 36.5. IMPRESSION: Postoperative day #1, status post left total knee arthroplasty. PLAN: At this point, we will change her dressing and discontinue her Crane. We will also Hep- Lock her IV. The patient will mobilize with physical therapy and we will consult social services director for discharge planning for inpatient rehabilitation. cc: Foreign Dupont MD
[2016-10-22] MEDS: OXY IR PO PRN ×2 (12:49→18:48)
[2016-10-23] MEDS ORDERED: VALIUM IV ONE ×2 (00:19→01:42)
[2016-10-23] MEDS: NS 1,000 ML IV SCH ×2 (02:44→19:01)
[2016-10-23] MEDS: TYLENOL PO SCH ×4 (02:44→21:14)
[2016-10-23] MEDS: XARELTO PO SCH (05:48)
[2016-10-23] MEDS: SYNTHROID PO SCH ×2 (05:48→06:17)
[2016-10-23] MEDS: OXY IR PO PRN ×4 (05:50→17:39)
[2016-10-23] MEDS: MORPHINE IV PRN (07:40)
--- NOTE | 2016-10-23 08:30 | PROGRESS NOTE ---
DATE: 10/23/2016 SUBJECTIVE: The patient is a pleasant 80-year-old female who is 2 days status post left total knee arthroplasty. She is currently resting comfortably this morning. She did have some confusion and some agitation last night, and she got out of bed. The patient is better this morning. The patient was given some Valium and she responded well. She is resting comfortably this morning and is awake, alert, and cooperative on exam. OBJECTIVE: On physical exam, the patient's left lower extremity wound looks good. There is no signs or symptoms flexion. Calf is soft. She has active dorsiflexion and plantar flexion. She is grossly neurovascularly intact distally. LABORATORY DATA: Her hemoglobin is 11.0 and hematocrit is 34.0. IMPRESSION: 1. Postop day #2 status post left total knee arthroplasty. PLAN: At this point, the patient will continue with physical therapy with full weightbearing left lower extremity. We will plan on discharging to rehab tomorrow if a bed is available. cc: Foreign Dupont MD
[2016-10-23] MEDS: NEURONTIN PO SCH ×4 (09:04→21:23)
[2016-10-23] MEDS: APRESOLINE PO SCH ×4 (09:04→21:13)
[2016-10-23] MEDS: COZAAR PO SCH (09:04)
[2016-10-23] MEDS: NORVASC PO SCH (09:04)
[2016-10-23] MEDS: BYSTOLIC PO SCH (09:04)
[2016-10-23] MEDS: COLACE PO SCH ×2 (09:04→21:13)
[2016-10-23] MEDS: XANAX PO SCH ×2 (09:05→21:13)
[2016-10-23] MEDS: PERIDEX MT SCH ×2 (09:05→21:13)
[2016-10-23] MEDS: PEPCID PO SCH (09:05)
[2016-10-23] MEDS: ANTIVERT PO SCH ×3 (09:05→21:14)
[2016-10-23] MEDS: LASIX PO SCH (09:05)
--- NOTE | 2016-10-23 10:23 | DISCHARGE SUMMARY ---
ADMISSION DATE: 10/21/2016 DISCHARGE DATE: 10/24/2016 ADMITTING DIAGNOSIS: Degenerative arthritis left knee. DISCHARGE DIAGNOSIS: Degenerative arthritis left knee status post left total knee arthroplasty. BRIEF HISTORY: The patient is a pleasant 80-year-old female with a chronic history of worsening pain and discomfort in the left knee with continued pain and discomfort despite appropriate nonoperative treatment. X-rays revealed significant degenerative osteoarthritis. Recommendation to proceed with left total knee arthroplasty was offered. Risks and benefits were discussed and all questions answered. HOSPITAL COURSE AND TREATMENT: The patient was admitted to the hospital and underwent left total knee arthroplasty. She tolerated the procedure well. The patient did have some episodes of some confusion at night, which responded to medication improved through the day. By postoperative day #2, her hemoglobin was 11.0 and hematocrit was 34.0 and she was asymptomatic. Prior to discharge, the patient is afebrile tolerating a regular diet. Wound looked good. There were no signs or symptoms of infection and she was slow to progress with Physical Therapy. It was felt she would benefit from inpatient rehabilitation. The patient and family are agreeable to this. DISCHARGE MEDICATIONS: 1. OxyIR 5 mg 1 p.o. q.4 hours p.r.n. pain 2. Xarelto 10 mg p.o. daily x14 days 3. For remaining medications, please see medication list. DISCHARGE INSTRUCTIONS: 1. The patient will be discharged for inpatient rehabilitation. 2. Consult physical therapy with full weightbearing and range of motion exercises and gait training per total knee protocol 3. Discontinue jonh in 11 days. 4. Follow up in the office in 3-4 weeks. cc: Foreign Dupont MD
--- NOTE | 2016-10-23 10:56 | Diag Imaging Result Doc PS360 ---
EXAM: CHEST-1 VIEW HISTORY: rehab placement TECHNIQUE: AP portable upright at 1040 COMMENT: There is a large hiatal hernia. There is a granuloma in the right middle lobe. Compared to 08/18/2016 there is been no significant change. The cardiac silhouette is slightly enlarged. IMPRESSION: Stable chest. Electronically signed by Boogie Núñez 10/23/2016 10:53 AM
[2016-10-24] MEDS: NS 1,000 ML IV SCH (03:15)
[2016-10-24] MEDS: TYLENOL PO SCH ×2 (04:31→07:45)
[2016-10-24 05:34] LABS: HEMOGLOBIN 10.9 g/dL (12.0-16.0)
[2016-10-24] MEDS: XARELTO PO SCH (06:51)
[2016-10-24] MEDS: SYNTHROID PO SCH (06:51)
[2016-10-24 07:43] VITALS: BP 161/60
[2016-10-24] MEDS: BYSTOLIC PO SCH (07:45)
[2016-10-24] MEDS: PEPCID PO SCH (07:46)
[2016-10-24] MEDS: MORPHINE IV PRN (07:46)
[2016-10-24] MEDS: LASIX PO SCH (07:47)
[2016-10-24] MEDS: NORVASC PO SCH (07:47)
[2016-10-24] MEDS: XANAX PO SCH (07:47)
[2016-10-24] MEDS: COZAAR PO SCH (07:47)
[2016-10-24] MEDS: PERIDEX MT SCH (07:47)
[2016-10-24] MEDS: NEURONTIN PO SCH (07:47)
[2016-10-24] MEDS: APRESOLINE PO SCH (07:48)
[2016-10-24] MEDS: COLACE PO SCH (07:48)
[2016-10-24] MEDS: ANTIVERT PO SCH (08:07)
[2016-10-24] MEDS: OXY IR PO PRN (09:37)
--- NOTE | 2016-10-24 12:02 | PROGRESS NOTE ---
DATE: 10/24/2016 SUBJECTIVE: Kendal Nunez is an 80-year-old female patient of Dr. Dupont, who said he performed a left total knee arthroplasty on Wednesday. She has no complaints. OBJECTIVE: General: She is a well-developed and well-nourished female. She is alert and cooperative to exam. Extremities: Her knee incision is healing nicely. There is no sign of infection. Her leg is neurovascularly intact. IMPRESSION: Left total knee arthroplasty. PLAN: She will be transferred to rehab today. I have answered all her questions. She will follow up with Dr. Dupont as an outpatient. cc: MD Foreign Licona MD [facility]
== END 2016-10-24 13:40 ==
LOC: SURHOLD 06:44 → 4N 10:57
PROVIDERS: ADMIT Orthopaedic Surgery Adult Reconstructive Orthopaedic Surgery; ATTEND Orthopaedic Surgery Adult Reconstructive Orthopaedic Surgery

== ENCOUNTER 2016-10-31 09:44 | Inpatient (IN) ==
[2016-10-31] MEDS ORDERED: NORCO-7.5 PO ONE (10:20)
[2016-10-31 11:07] LABS: MANUAL DIFF NEEDED? NO
[2016-10-31 11:15] LABS: BASO% 0.7 % (0.0-0.8); EOS# 0.27 X1000 (0.0-0.7); EOS% 2.3 % (0.0-10.0); HEMATOCRIT 34.5 % (37.0-47.0); HEMOGLOBIN 10.9 g/dL (12.0-16.0); IMM GRAN# 0.02 X1000 (0.0-0.04); IMM GRAN% 0.2 % (0.0-0.5); LYMPH% 21.7 % (20.5-51.1); MCH 26.6 PG (27-31); MCHC 31.6 g/dL (33-37); MCV 84.1 FL (81-99); MONO# 0.99 X1000 (0.11-0.59); MONO% 8.3 % (1.7-9.3); MPV 9.8 FL (7.4-10.4); NEUT% 66.8 % (42.2-75.2); PLT 359 X1000 (130-400)
[2016-10-31 11:21] LABS: INR 1.04; PTT 34.1 Seconds (22.0-36.0)
[2016-10-31] MEDS ORDERED: PERCOCET-10 PO ONE (11:22)
--- NOTE | 2016-10-31 11:34 | Diag Imaging Result Doc PS360 ---
EXAM: KNEE 3 VIEWS LEFT INDICATION: Fall, s/p knee surgery X 2 weeks ago TECHNIQUE: 3 views COMPARISON: 10/21/2016 FINDINGS: The new arthroplasty hardware is in stable position as compared to the recent previous study. There is no evidence of periprosthetic fracture. There is no dislocation. Anterior skin jonh are in place. The drainage catheter has been removed. There is mild soft tissue edema around the knee, assumed to be postsurgical. IMPRESSION: Recent postsurgical changes. No definite acute osseous abnormality, otherwise. Electronically signed by Sridhar Cerna 10/31/2016 11:32 AM
[2016-10-31] MEDS ORDERED: VANCOMYCIN 1 GM/NS 1 GM/250 ML IVPB IV ONE (11:40)
[2016-10-31 11:47] LABS: ALBUMIN 3.3 g/dL (3.5-5.0); CALCIUM 9.6 mg/dL (8.8-10.2); POTASSIUM 4.5 mmol/L (3.5-5.1); TOTAL BILIRUBIN 0.58 mg/dL (0.20-1.00); TOTAL PROTEIN 6.9 g/dL (6.3-8.3)
[2016-10-31] MEDS ORDERED: NS 500 ML IV ONE (12:54)
--- NOTE | 2016-10-31 13:12 | PROVIDER DOCUMENTATION ---
This chart was entered by Eden Fields Scribe, acting as scribe for Benigno Meza MD. HPI-Rash/Wound/ReCheck - General Chief Complaint: Fall Stated Complaint: Fall, Lt. knee pain/swelling Time Seen by Provider: 10/31/16 10:08 Source: patient Allergies/Adverse Reactions: Allergies Allergy/AdvReac Type Severity Reaction Status Date / Time cyclobenzaprine HCl * Allergy Severe Unknown Verified 10/31/16 10:01 [From Flexeril] diphenhydramine HCl * Allergy Severe Unknown Verified 10/31/16 10:01 [From Benadryl] hydrocodone bitartrate * Allergy Severe Unknown Verified 10/31/16 10:01 [From Lortab] chlorpheniramine [From Endal] Allergy Unknown Verified 10/31/16 10:01 clarithromycin [From Biaxin] Allergy Unknown Verified 10/31/16 10:01 codeine [From Endal] Allergy Unknown Verified 10/31/16 10:01 guaifenesin [From Endal] Allergy Unknown Verified 10/31/16 10:01 hydrochlorothiazide Allergy Unknown Verified 10/31/16 10:01 lisinopril [From Zestril] Allergy Unknown Verified 10/31/16 10:01 meperidine [From Demerol] Allergy Unknown Verified 10/31/16 10:01 midazolam [From Versed] Allergy Unknown Verified 10/31/16 10:01 Opioids - Morphine Analogues Allergy Unknown Verified 10/31/16 10:01 phenylephrine [From Endal] Allergy Unknown Verified 10/31/16 10:01 phenylpropanolamine Allergy Unknown Verified 10/31/16 10:01 [From Endal] prednisone AdvReac DIZZINESS Verified 10/31/16 10:01 bidex Allergy Unknown Uncoded 10/31/16 10:01 Home Medications: Home Medication List Medication Instructions Recorded Confirmed Last Taken Type Amlodipine [Norvasc] 10 mg PO DAILY 05/21/13 10/31/16 10/30/16 08:30 History Furosemide [Lasix] 80 mg PO DAILY 05/21/13 10/31/16 10/30/16 08:30 History Alprazolam [Xanax] 0.5 mg PO BID 11/10/14 10/31/16 10/30/16 History Levothyroxine [Synthroid] 100 microgm PO DAILY 08/13/16 10/31/16 10/30/16 06:00 History Gabapentin 800 mg PO 4XDAY 08/18/16 10/31/16 10/30/16 History Hydralazine [Apresoline] 10 mg PO 4XDAY 08/18/16 10/31/16 10/30/16 History Losartan Potassium 100 mg PO DAILY 08/18/16 10/31/16 10/30/16 08:30 History Meclizine HCl 25 mg PO TID 10/13/16 10/31/16 10/30/16 History Nebivolol [Bystolic] 5 mg PO DAILY 10/13/16 10/31/16 10/30/16 08:30 History Docusate Sodium [Colace] 100 mg PO BID capsule 10/23/16 10/31/16 10/30/16 Rx Ondansetron [Zofran] 4 mg PO Q6H PRN PRN #0 tablet 10/23/16 10/31/16 Unknown Rx Oxycodone I.r. [Oxy Ir] 5 mg PO Q4H PRN PRN #60 capsule 10/23/16 10/31/16 Unknown Rx Rivaroxaban [Xarelto] 10 mg PO Q24H tablet 10/23/16 10/31/16 10/30/16 08:30 Rx Polyethylene Glycol 3350 [Miralax] 17 gm PO EVERY OTHER DAY 10/31/16 10/31/16 08:30 History - History of Present Illness-Dermatology Nature of Presenting Problem: Pt is a 80 year old female who came to the ED with a cc of left knee pain and falling out of the bed last night. Pt reports two weeks ago she had left total knee replacement surgery. Pt reports the site has been bruised and swollen. Location: reports: lower extremity (left knee) Quality: reports: painful Severity: reports: mild Onset/Duration: reports: unsure Timing: reports: still present Context/Associated Symptoms: reports: incised wound Exposure: reports: unknown cause Locality of Occurance: Home Similar Symptoms Previously?: Yes Recently seen or treated by another doctor?: No Review of Systems - Adult - REVIEW OF SYSTEMS - ADULT Constitutional: reports: no symptoms reported. denies: fever, fatique Eyes: reports: no symptoms reported Ears, Nose, Mouth & Throat: reports: no symptoms reported Cardiovascular: reports: no symptoms reported Respiratory: reports: no symptoms reported Gastrointestinal: reports: no symptoms reported Genitourinary: reports: no symptoms reported Musculoskeletal: reports: see HPI, joint pain, joint swelling Integumentary: reports: no symptoms reported Neurological: reports: no symptoms reported Psychiatric: reports: no symptoms reported Endocrine: reports: no symptoms reported Hematologic/Lymphatic: reports: no symptoms reported Allergic/Immunologic: reports: no symptoms reported All Other Systems: Reviewed and Negative Past History - Adult - PAST MEDICAL HISTORY-ADULT Review of Records: reports: Old Records Reviewed, Nursing Assessment Review Major Childhood Illnesses: reports: denies history Cardiovascular: reports: HTN, hyperlipidemia Respiratory: reports: denies history Gastrointestinal: reports: denies history Obstetrical/Gynecological: reports: denies history Genitourinary: reports: denies history Musculoskeletal: reports: denies history Neurological: reports: other (neuropathy) Endocrine/Immune: reports: denies history Other Conditions: reports: denies history - PRIOR SURGERIES/PROCEDURES Surgical/Procedure History: reports: hysterectomy, other (cataract) - PRIOR HOSPITALIZATIONS Prior Hospitalizations: reports: none - IMMUNIZATION STATUS Childhood Immunizations: See Nurse Assessment Flu Vaccine: See Nurse Assessment - FAMILY HISTORY Family History: reviewed, not pertinent Physical Exam-General - PHYSICAL EXAM-ADULT Initial Vital Signs Reviewed: Yes - CONSTITUTIONAL General Appearance: appears well, alert, no apparent distress - EYES Eyes: PERRL/EOMI, pink conjunctivae - HEAD, EARS, NOSE, MOUTH & THROAT HENMT: normocephalic/atraumatic, moist mucous membranes - NECK Neck: non-tender, full range of motion - RESPIRATORY Respiratory: chest non-tender, lungs clear, normal breath sounds - CARDIOVASCULAR Cardiovascular: normal peripheral pulses, regular rate, rhythm - GASTROINTESTINAL (ABDOMEN) Abdominal Exam: normal bowel sounds, non tender, soft - MUSCULOSKELETAL Back Exam: normal inspection, no CVA tenderness Extremity: normal range of motion, swelling (left knee), tenderness (left knee) - SKIN Integumentary: normal color, normal turgor - NEUROLOGIC Neurologic: grossly normal - PSYCHIATRIC Psych/Mental Status: normal mood/affect, normal thought content, normal thought process, oriented x 3 Progress - PLAN OF CARE/RESULTS Progress/Plan/Lab Results: Vital Signs - 8 hr 10/31/16 09:49 10/31/16 11:30 10/31/16 12:00 Temperature 98.1 F Pulse Rate 77 68 67 Respiratory Rate 18 Blood Pressure 139/68 140/67 113/66 O2 Sat by Pulse Oximetry 94 L 98 94 L Laboratory Results - last 24 hr 10/31/16 10/31/16 10/31/16 10:55 10:55 10:55 WBC 11.99 H RBC 4.10 L Hgb 10.9 L Hct 34.5 L MCV 84.1 MCH 26.6 L MCHC 31.6 L RDW Std Deviation 14.5 Plt Count 359 MPV 9.8 Immature Gran % (Auto) 0.2 Neut % (Auto) 66.8 Lymph % (Auto) 21.7 [place] % (Auto) 8.3 Eos % (Auto) 2.3 Baso % (Auto) 0.7 Immature Gran # (Auto) 0.02 Neut # (Auto) 8.03 H Lymph # (Auto) 2.60 [place] # (Auto) 0.99 H Eos # (Auto) 0.27 Baso # (Auto) 0.08 PT INR PTT (Actin FS) Sodium 140 Potassium 4.5 Chloride 98 Carbon Dioxide 31 Anion Gap 11 BUN 16 Creatinine 1.0 H Estimated GFR/1.73 m2 53 BUN/Creatinine Ratio 16 Glucose 150 H Calculated Osmolality 283 Calcium 9.6 Total Bilirubin 0.58 AST 14 ALT 6 L Alkaline Phosphatase 86 Creatine Kinase 45 Troponin T Total Protein 6.9 Albumin 3.3 L Globulin 3.6 Albumin/Globulin Ratio 0.9 Plasma Lactate 2.7 H 10/31/16 10/31/16 10:55 10:55 WBC RBC Hgb Hct MCV MCH MCHC RDW Std Deviation Plt Count MPV Immature Gran % (Auto) Neut % (Auto) Lymph % (Auto) [place] % (Auto) Eos % (Auto) Baso % (Auto) Immature Gran # (Auto) Neut # (Auto) Lymph # (Auto) [place] # (Auto) Eos # (Auto) Baso # (Auto) PT 11.0 INR 1.04 PTT (Actin FS) 34.1 Sodium Potassium Chloride Carbon Dioxide Anion Gap BUN Creatinine Estimated GFR/1.73 m2 BUN/Creatinine Ratio Glucose Calculated Osmolality Calcium Total Bilirubin AST ALT Alkaline Phosphatase Creatine Kinase Troponin T < 0.010 Total Protein Albumin Globulin Albumin/Globulin Ratio Plasma Lactate Orders Category Date Time Status Cardiac Monitoring DIRECTED Care 10/31/16 10:19 Active Oxygen Therapy- ED Nursing DIRECTED Care 10/31/16 10:19 Active Saline Loc NOW Care 10/31/16 10:19 Active Regular Diet Diet 10/31/16 12:47 Active KNEE 3 VIEWS LEFT [RAD] Stat Exams 10/31/16 10:20 Completed BLOOD CULTURE [BLDCUL] Stat Lab 10/31/16 10:51 Results CBC WITH ELECTRONIC DIFF [HEME] Stat Lab 10/31/16 10:55 Completed CK PROFILE [SP CHEM] Stat Lab 10/31/16 10:55 Completed COMPREHENSIVE METABOLIC PANEL [CHEM] Stat Lab 10/31/16 10:55 Completed LACTATE, PLASMA [CHEM] Stat Lab 10/31/16 10:55 Completed LACTATE, PLASMA [CHEM] Timed Lab 10/31/16 13:30 Uncollected PROTIME WITH INR [COAG] Stat Lab 10/31/16 10:55 Completed PTT [COAG] Stat Lab 10/31/16 10:55 Completed TROPONIN T Stat Lab 10/31/16 10:55 Completed 0.9% Sodium Chloride Inj [Ns] 500 ml Med 10/31/16 12:54 Active IV 999 mls/hr Hydrocodone/APAP 7.5 mg/325 mg [[place]-7.5] Med 10/31/16 10:20 Discontinued 1 each PO NOW ONE Oxycodone/APAP 10 mg/325 mg [Percocet-10] Med 10/31/16 11:22 Discontinued 1 each PO NOW ONE Vancomycin 1 gm/Ns Med 10/31/16 11:40 Discontinued 1 gm in 250 ml IV NOW Pulse Oximetry Stat Oth 10/31/16 10:19 Completed Venous U/S Left Leg Stat Ther 10/31/16 10:20 Completed Transfer/Admit Order [TRANSFER] Routine Transfer 10/31/16 12:51 Ordered Result Diagrams: 10/31/16 10:55 10/31/16 10:55 - XRAY 1 XRAY: Left XRAY Study: Knee (recent postsurgical changes. no definite acute osseous abnormality, otherwise.) - CONSULTS/PCP/HOSPITALIST Notification #1 *Consult/PCP/Hospitalist*: Dr. Sin/Tyson Time Discussed: 13:09 Consult Disposition: Will see in ED, Admit Departure - Departure Date of Disposition Decision: 10/31/16 Time of Disposition Decision: 13:09 DIAGNOSIS: Infection of left knee, Post-operative complication Disposition: ADMITTED INPATIENT 09 Certified Medical Emergency: Emergent Condition: Stable Referrals and Follow-Ups: Shakir Rocha MD [Primary Care Provider] - - Critical Care Note This patient required my direct & personal management of CC.: No This chart was documented by the indicated scribe, (Eden Fields Scribe) and accurately reflects the services I performed and decisions made by me, Benigno Meza MD, as attested by the provider's signature.
[2016-10-31 14:01] LABS: HEMOGLOBIN A1C 6.8 % (4.8-6.0)
[2016-10-31] MEDS ORDERED: ZOFRAN PO PRN (14:17)
--- NOTE | 2016-10-31 15:23 | HISTORY AND PHYSICAL ---
PCP: Dr. Shakir Rocha. ORTHOPEDIC SURGEON: Dr. Dupont. CHIEF COMPLAINT: Left knee pain. HISTORY OF PRESENT ILLNESS: Mrs. Nunez is a pleasant 80-year-old female who was recently discharged from the hospital status post left knee total arthroplasty by Dr. Dupont. She was discharged to [facility] where she has been doing rehab. Last night the patient was getting out of bed to go to the bathroom had a trip and fall and landed awkwardly on her knee. This morning was continuing to complain of pain and she was sent here for evaluation. Per patient report, [facility] felt that over the past 3 days her knee has been getting swollen and they were concerned about infection and she was slated to start antibiotics today. There is also a question of fever, the son at the bedside reports that he was told by 1 of the staff members she had a fever of 102 however she is afebrile here. At any rate the family reports that the knee is becoming more edematous, is now red and warm to touch. When she got to the ER she had labs and diagnostics done. Her labs showed a white count of 12, lactic acid 2.7 but vitals are stable. Blood cultures have been obtained and vancomycin has been started. We are now going to admit her for further treatment and evaluation. PAST MEDICAL HISTORY: 1. Recent left knee arthroplasty. 2. Hypertension. 3. Hypothyroidism. 4. History of CVA. PAST SURGICAL HISTORY: She has had a recent left knee arthroplasty, cataract removal, hysterectomy and brow left. SOCIAL HISTORY: She denies tobacco, alcohol or drug use. She currently is at [facility] for rehab, family is at the bedside. FAMILY HISTORY: Noncontributory. REVIEW OF SYSTEMS: Fourteen-point review of systems obtained and found to be negative with the exception of the HPI. ALLERGIES: Tylenol, Flexeril, Benadryl, Lortab, prednisone. HOME MEDICATIONS: Xanax 0.5 mg p.o. b.i.d., Norvasc 10 mg daily, Colace 100 mg b.i.d., Lasix 80 mg daily, Neurontin 800 mg p.o. 4 times a day, Apresoline 10 mg p.o. 4 times a day, Synthroid 100 mcg daily, losartan 100 mg daily, meclizine 25 mg t.i.d., Bystolic 5 mg daily , Zofran 4 mg sublingual as needed, OxyIR 5 mg every 4 hours as needed for pain, Xarelto 10 mg daily, MiraLAX 17 g daily. PHYSICAL EXAMINATION: VITAL SIGNS: Blood pressure is 113/66, heart rate 67, respiratory rate 17, O2 saturation 98% on room air, temperature is 98.1 degrees. GENERAL: Overweight female lying in hospital bed, no acute distress. NEUROLOGIC: She is awake, alert, oriented, follows commands without focal deficits. HEENT: Head atraumatic and normocephalic. Her pupils are equal, round and reactive to light. Oral mucosa is moist. Trachea is midline. CHEST: Clear to auscultation bilaterally. CV: Regular rate and rhythm. S1-S2 is noted. GI: Soft, nondistended, nontender. Bowel sounds positive. EXTREMITIES: Left knee with midline jonh, edema and erythema, also warm to touch lower extremities without edema, clubbing or cyanosis. Pulses and neurovascular intact bilaterally . DIAGNOSTIC DATA: Chest x-ray negative, knee x-ray postoperative changes without any acute findings. WBC 12, hemoglobin 10.9, hematocrit 34.5, platelet count 359,000, INR 1.04. Sodium 140, potassium 4.5, chloride 98, CO2 31, anion gap 11, BUN 16, creatinine 1, glucose 150, total bilirubin 0.5, AST 14, ALT 6, alkaline phosphatase 86, troponin negative, albumin 3.3, lactate 2.7. ASSESSMENT/PLAN: 1. Left knee septic arthritis: Blood cultures have been obtained and we are starting vancomycin. Will also consult Dr. Dupont, continue physical therapy and early ambulation. 2. Early sepsis: Patient meets criteria with mildly elevated lactate and white count. Blood cultures have been obtained, were starting vancomycin also gave her saline bolus of 500 mL. 3. Hyperglycemia: Review of her glucose in the past looks average around 175- 200. She has no history of diabetes and we are checking a hemoglobin A1c, will treat accordingly and if need be get diabetic education on board. 4. Hypertension: Continue her home medications, stable. 5. Hypothyroidism. Will continue her Synthroid, this is chronic and stable. 6. Deep vein thrombosis prophylaxis will be provided with her home Xarelto, further recommendations to follow. Dictated by YOSEF Cortes for Jay Sin MD cc: MD Jay Albert MD I have sen and examined patient and I agree with the above plan. I also spoke with Berumen from the ortho team. He doesn't think patient has a septic knee. patient to be discharge tomorrow. [email or web address]
[2016-10-31] MEDS: NS 1,000 ML IV SCH (15:27)
[2016-10-31] MEDS: NEURONTIN PO SCH ×3 (15:30→21:11)
[2016-10-31] MEDS: OXY IR PO PRN ×2 (15:30→19:15)
[2016-10-31] MEDS: ANTIVERT PO SCH ×2 (15:30→17:17)
[2016-10-31] MEDS: APRESOLINE PO SCH ×3 (15:31→21:11)
[2016-10-31] MEDS: XARELTO PO SCH (15:31)
--- NOTE | 2016-10-31 18:22 | CONSULTATION ---
DATE OF CONSULTATION: 10/31/2016 CHIEF COMPLAINT: Concern for septic periprosthetic infection left knee. HISTORY OF PRESENT ILLNESS: This very pleasant, 80-year-old female, was examined in bed 477-A. She is a patient of Dr. Kena Dupont who underwent total knee arthroplasty on 10/21/2016. She was discharged on 10/24/2016 with uncomplicated hospital course. She has been staying at rehab since being discharge. She states she has been doing well since her surgical procedure. She did have a fall where she fell out of bed last night. She states she does not have any significant knee pain. She states it is stiff but it has been like that since surgery. Currently she denies any fevers or chills. No known chest pain. No shortness of breath. She was evaluated in the emergency department and there was concern for periprosthetic infection to her left knee. I have been consulted concerning this. PAST MEDICAL HISTORY: Her past medical history includes recent left total knee arthroplasty, hypertension, hypothyroidism, history of CVA. PAST SURGICAL HISTORY: 1. Left total knee arthroplasty on 10/21/2016 secondary to osteoarthritis of the left knee. 2. Cataract surgery. 3. Hysterectomy. MEDICATIONS: Xanax, Norvasc, Colace, Lasix, Neurontin, Apresoline, Synthroid, losartan, meclizine, Bystolic, Zofran, Xarelto, MiraLAX. ALLERGIES: Tylenol, Flexeril, Benadryl, Lortab, prednisone. FAMILY HISTORY: Noncontributory. SOCIAL HISTORY: Denies any use of alcohol, tobacco, or illicit drugs. She is currently at [facility] for rehab. REVIEW OF SYSTEMS: Fourteen point review of systems negative except stated otherwise above. PHYSICAL EXAMINATION: General: She is alert and oriented x3. She appears in no acute distress. HEENT: Head is normocephalic, atraumatic. Eyes: Pupils equal, round, react to light and accommodation. Extraocular muscles intact bilaterally. Ears: No otalgia or otorrhea. Throat is not injected. Neck: Supple. Trachea midline. Cardiovascular: Regular rate and rhythm. Abdomen: Soft, nontender. Musculoskeletal: Examination of left lower extremity: She has well- healing midline skin incision, jonh intact. She has bruising and swelling to the left knee. She has some mild warmth. On gentle passive and active range of motion she does not complain of significant pain. She has no drainage from the incision. Negative Homans bilaterally. She has some bruising even over the mid thigh. Vital Signs: Blood pressure 113/66, heart rate 67, respirations 17, O2 saturation 98% on room air, temperature 98.1 degrees. DIAGNOSTIC STUDIES: 1. Negative chest x-ray. 2. X-rays of the left knee demonstrates normal postoperative findings. No osteolysis, no loosening. No fracture. 3. Her white blood cell count 11.99, hemoglobin 10.9, hematocrit 34, platelet count 359,000. INR 1.04. Creatinine 1.0, and glucose 115. Hemoglobin A1c 6.8. Plasma lactate 2.7. Albumin 3.3. IMPRESSION: 1. Patient is 10 days postop left total knee arthroplasty on 10/21/2016. 2. Leukocytosis. 3. Hyperglycemia. 4. Hypertension. 5. Hypothyroidism. RECOMMENDATIONS: At this time after evaluating the patient, the patient does not appear to have a large effusion of the knee concerning for a periprosthetic infection. This mostly looks just like a postop day #10 knee that is having a lot of bruising and swelling from her surgical procedure. I would like to obtain a urinalysis. Also obtain a CRP level. We will continue to monitor her and watch her. Thank you for allowing me to participate in the care of Ms. Nunez. If any questions or concerns, please call. cc: DO Jay Schmidt MD
[2016-10-31 18:43] LABS: URINE MICRO REVIEW NEEDED? NO; URINE SOURCE VOIDED
[2016-10-31 18:49] LABS: BILIRUBIN URINE NEGATIVE (NEGATIVE); BLOOD URINE NEGATIVE (NEGATIVE); COLOR YELLOW; GLUCOSE URINE NEGATIVE (NEGATIVE); LEUKOCYTES URINE SMALL (NEGATIVE); NITRITE URINE NEGATIVE (NEGATIVE); PH URINE 5.5; PROTEIN URINE NEGATIVE (NEGATIVE); TURBIDITY URINE CLEAR (CLEAR); UROBILINOGEN URINE NORMAL (NORMAL)
[2016-10-31 18:51] LABS: UR EPITHELIAL CELLS <10 /HPF (<10); URINE BACTERIA NEGATIVE /HPF; URINE RBC <10 /HPF (<10)
[2016-10-31] MEDS: COLACE PO SCH (21:11)
[2016-10-31] MEDS: XANAX PO SCH (21:11)
[2016-11-01] MEDS: OXY IR PO PRN ×3 (02:43→12:40)
[2016-11-01] MEDS: NS 1,000 ML IV SCH ×2 (05:06→12:43)
[2016-11-01 06:00] LABS: HEMATOCRIT 32.6 % (37.0-47.0); HEMOGLOBIN 10.9 g/dL (12.0-16.0); MCH 31.3 PG (27-31); MCHC 33.4 g/dL (33-37); MCV 93.7 FL (81-99); MPV 10.4 FL (7.4-10.4); RBC 3.48 XMIL (4.2-5.4)
[2016-11-01] MEDS ORDERED: SYNTHROID PO SCH (07:00)
[2016-11-01] MEDS ORDERED: BYSTOLIC PO SCH (09:00)
[2016-11-01] MEDS ORDERED: NORVASC PO SCH (09:00)
[2016-11-01] MEDS ORDERED: COZAAR PO SCH (09:00)
--- NOTE | 2016-11-01 09:40 | PROGRESS NOTE ---
DATE: 11/01/2016 SUBJECTIVE: The patient is a pleasant, 80-year-old female who is status post left total knee arthroplasty on 10/21/2016, 11 days status post left total knee arthroplasty. Patient is currently in [facility] inpatient rehabilitation and sustained a fall yesterday. She was getting of bed to go to the bathroom, and tripped and landed awkwardly on the knee, and had some increased pain and discomfort. Presented to the emergency room. The patient denies any fevers or chills. PHYSICAL EXAMINATION: On physical examination of the patient's left lower extremity, her wound looks good. There are no signs or symptoms of infection. She has expected swelling. She also has some ecchymoses anteriorly. Her calf is soft. She is able to actively dorsiflex and plantarflex her ankle. DIAGNOSTIC DATA: Her x-rays were reviewed and revealed no evidence of acute fracture or dislocation. Her white count upon admission was 11.99 and this morning was 6. C-reactive protein is normal at 8.78. IMPRESSION: 1. Status post fall, status post left total knee arthroplasty with effusion. 2. Leukocytosis, resolved. 3. Hypertension. 4. Hypothyroidism. PLAN: At this point, there are no signs or symptoms of infection at this time and she is stable from an orthopedic standpoint. Patient will continue working with physical therapy with gait training and is a stable to be returned to rehab when is cleared per YOSEF Cortes. She will follow up in the office after discharge from rehab. cc: MD Jay Shipley MD
[2016-11-01] MEDS: NEURONTIN PO SCH ×2 (09:48→14:05)
[2016-11-01] MEDS: XANAX PO SCH (09:48)
[2016-11-01] MEDS: COLACE PO SCH (09:48)
[2016-11-01] MEDS: ANTIVERT PO SCH ×2 (09:48→14:05)
[2016-11-01] MEDS: APRESOLINE PO SCH ×2 (09:49→14:05)
[2016-11-01 14:03] VITALS: BP 127/54
[2016-11-01] MEDS: XARELTO PO SCH (14:05)
--- NOTE | 2016-11-01 19:31 | DISCHARGE SUMMARY ---
ADMISSION DATE: 10/31/2016 DISCHARGE DATE: 11/01/2016 DISPOSITION: [facility]. FOLLOW-UP: 1. Shakir Rocha MD 2. Foreign Dupont MD CONSULTATION DURING THIS ADMISSION: Orthopedics was consulted. Patient was seen by Dr. Baez and followed up by Dr. Dupont. IMAGING STUDIES OF SIGNIFICANCE: X-ray of the of the left knee was done which shows recent postsurgical changes. No definite acute osseous abnormality. ADMISSION DIAGNOSES: 1. Suspected left knee septic arthritis. 2. Hyperglycemia. 3. Hypertension. 4. Hypothyroidism. DISCHARGE DIAGNOSES: 1. Status post fall. 2. Status post left total knee arthroplasty with infusion. No evidence of septic knee. 3. Leukocytosis, improved. 4. Hypertension. 5. Hypothyroidism. 6. Obesity with body mass index of 30.2. DISCHARGE MEDICATIONS: 1. Amlodipine 10 mg daily. 2. Alprazolam 0.5 mg b.i.d. 3. Levothyroxine 100 mcg daily. 4. Hydralazine 10 mg 4 times per day. 5. Losartan 100 mg daily. 6. Gabapentin 800 mg 4 times per day. 7. Bystolic 5 mg daily. 8. OxyContin. 9. Rivaroxaban 10 mg q.24. PRESENTING COMPLAINT: Left knee pain. HISTORY OF PRESENTING COMPLAINT: Ms. Nunez is an 80-year-old female who had left knee surgery on 10/21/2016 and was subsequently discharged to rehab. Patient was doing fine in the rehab, but referred to have fallen in the rehab and there was concern she probably might have injured the surgical knee, so she was brought in for evaluation. HOSPITAL COURSE: The patient was admitted. There was a question if the left knee had developed some infection, so Orthopedics was consulted. They evaluated, both Dr. Baez and Dr. Dupont and they both agreed there were just postsurgical changes and there was no evidence of a septic knee. Patient refers to be doing fine. White count improved. So patient was discharged back to the rehab center to continue with her physical orthodoxy. At the time of discharge, there are no pending laboratories or imaging studies. TIME SPENT: Time spent for discharge was 37 minutes. cc: Jay Sin MD
[2016-11-02] MEDS ORDERED: MIRALAX PO SCH (09:00)
--- NOTE | 2016-11-02 21:34 | Extremity Venous Study ---
PROCEDURE NAME: Venous U/S Left Leg - 10/31/2016 MOLDER OFFBEARER: Helga. REQUESTING PHYSICIAN: Dr. Meza. INDICATIONS: Postop swelling, exam for comparison 08/18/2016. FINDINGS: The deep and superficial veins of left lower extremity were visualized along their course. All veins are compressible with forward flow and no evidence intraluminal thrombus. cc: MD Jay Smith MD
== END 2016-11-01 14:46 ==
LOC: SUPCPDRO → ED 09:44 → SUATTDRO 13:16 → 4N 13:16
PROVIDERS: ADMIT Internal Medicine; ATTEND Internal Medicine